=== PATIENT | male | born 1985 | race Caucasian/White ===

== ENCOUNTER 2021-11-07 09:44 | Emergency (ER) | payer OTHER ==
[2021-11-07] MEDS: Magnesium Citrate Solution 296 ML Bottle PO ONE (10:16)
== END 2021-11-07 11:07 | disposition home or self-care (01) ==
LOC: VM.ED 09:44
DX: K59.03 Drug induced constipation (principal); T40.2X5A Adverse effect of other opioids, initial encounter; F17.210 Nicotine dependence, cigarettes, uncomplicated
CPT/HCPCS: 99283